=== PATIENT | female | born 1995 | race African-American/Black ===

== ENCOUNTER → 2017-08-11 | Outpatient (CLI) | payer OTHER | LOC: RAD 08:39 | DX: R13.10 Dysphagia, unspecified (principal); R11.2 Nausea with vomiting, unspecified; R10.13 Epigastric pain ==

== ENCOUNTER 2021-04-21 17:55 | Emergency (ER) | payer OTHER ==
[~2021-04-21] VITALS: Ht 160 cm; Wt 74.8 kg
[2021-04-21] MEDS ORDERED: MILI 0.25-0.031 EACH PO (18:06)
[2021-04-21] MEDS ORDERED: VALACYCLOVIR500 MG PO (18:07)
[2021-04-21 18:28] LABS: URINE BILIRUBIN NEGATIVE (Negative); URINE BLOOD 1+ (Negative); URINE CLARITY CLEAR; URINE COLOR YELLOW; URINE GLUCOSE-RANDOM* NEGATIVE (Negative); URINE KETONES NEGATIVE (Negative); URINE LEUKOCYTES-REFLEX TRACE (Negative); URINE NITRITE-REFLEX NEGATIVE (Negative); URINE PROTEIN (DIPSTICK) NEGATIVE (Negative); URINE SPECIFIC GRAVITY >= 1.030 (1.005-1.035); URINE UROBILINOGEN 0.2 E.U./dl (0.2-1.0)
[2021-04-21 18:38] LABS: CASTS None Seen /LPF (None Seen); SQUAMOUS 4-10 Moderate /LPF (0-3)
[2021-04-21 18:39] LABS: URINE RBC 1-2 Rare /HPF (NONE SEEN); URINE WBC-REFLEX 0-5 Rare /HPF (0-5)
[2021-04-21 18:40] LABS: CRYSTALS None Seen /LPF (None Seen)
[2021-04-21 20:03] LABS: ABSOLUTE NEUTROPHILS 1.7 thou/uL (1.4-8.2); BASOPHILS 0.9 % (0.0-2.0); EOSINOPHILS 1.5 % (0.0-3.0); HEMATOCRIT 35.4 % (37.0-47.0); HEMOGLOBIN 11.6 gm/dL (12.0-15.0); LYMPHOCYTES 45.3 % (24.0-44.0); MCH 27.9 pg (26.0-34.0); MCHC 32.9 g/dL (28.0-37.0); MCV 84.9 fL (80.0-100.0); PLATELET COUNT 265 thou/uL (150-400); POLYS 37.3 % (36.0-66.0); RBC 4.18 mil/uL (4.20-5.00); RDW 16.1 % (10.5-14.5); WBC 4.6 thou/uL (4.0-11.0)
[2021-04-21 20:24] LABS: ALBUMIN 3.5 g/dL (3.4-5.0); CALCIUM 8.4 mg/dL (8.5-10.1); CREATININE 0.7 mg/dL (0.6-1.0); POTASSIUM 3.2 mmol/L (3.5-5.1); TOTAL BILIRUBIN 0.2 mg/dL (0.2-1.0)
[2021-04-21] MEDS ORDERED: ZOFRAN ODT4 MG PO (20:38)
[2021-04-21 21:14] VITALS: BP 127/85
== END 2021-04-21 21:15 | disposition home or self-care (01) ==
LOC: ER 17:55
PROVIDERS: Physician Assistant
DX: A08.4 Viral intestinal infection, unspecified (principal); J45.909 Unspecified asthma, uncomplicated; Z79.899 Other long term (current) drug therapy